=== PATIENT | female | born 1990 | race Caucasian/White ===

== ENCOUNTER 2016-10-14 16:21 | Emergency (ER) | payer BC, OTHER ==
[~2016-10-14] VITALS: Wt 54.4 kg
[~2016-10-14 16:21] MED LIST: IBUP-1542 PO
[2016-10-14] MEDS ORDERED: ERYTOPOI BOTH EYES (16:33)
--- NOTE | 2016-10-14 16:39 | ERD ---
ER Documentation Chief Complaint Date/Time DATE: 10/14/16 TIME: 16:36 Chief Complaint LEFT EYE PAIN AND REDNESS. NO DRAINAGE. HPI Patient is a 26-year-old female who presents to the ED with left eye pain and redness for 1 week. She states that she developed a bump on the top eyelid and it has gotten red and more painful. She denies drainage. Denies fever or chills. She denies blurry vision. Denies headache or dizziness. She states that she has had a stye in the past and feels that this is similar to this. Denies trauma. No other complaints. ROS All systems reviewed and are negative except as per history of present illness. Medications Home Meds Active Scripts Erythromycin* (Erythromycin* Ophthalmic) 1 Applic Oint, 1 APPLIC BOTH EYES QID for 7 Days, EA Prov:EDWARDO HUGHES PA-C 10/14/16 Ibuprofen* (Motrin*) 600 Mg Tab, 600 MG PO Q6, #20 TAB Prov:SEAN NGUYỄN PA-C 03/10/16 Allergies Allergies: Coded Allergies: ampicillin (Verified Allergy, Intermediate, HIVES, SOB, 03/10/16) PMhx/Soc History of Surgery: No Anesthesia Reaction: No Hx Neurological Disorder: No Hx Respiratory Disorders: No Hx Cardiac Disorders: No Hx Psychiatric Problems: No Hx Miscellaneous Medical Probl: No Hx Alcohol Use: Yes (weekends) Hx Substance Use: No Hx Tobacco Use: No Physical Exam Vitals Vital Signs Date Time Temp Pulse Resp B/P Pulse Ox O2 Delivery O2 Flow Rate FiO2 10/14/16 16:25 98.8 88 20 125/75 98 Physical Exam GENERAL: Well-developed, well-nourished female. Appears in no acute distress. HEAD: Normocephalic, atraumatic. EYES: Pupils are equally reactive bilaterally. EOMs grossly intact. No conjunctival erythema. Upper left eyelid has an erythematous bump. White opening seen on inner top eyelid. No drainage. No pain with movement of eye. ENT: Moist mucous membranes. No uvula deviation. No kissing tonsils. No exudates. NECK: Supple. No lymphadenopathy or thyromegaly. No meningismus. negative kernig. negative brudinski. LUNG: Clear to auscultation bilaterally. No rhonchi, wheezing, rales or coarse breath sounds. HEART: Regular rate and rhythm. No murmurs, rubs or gallops. SKIN: Normal color. Warm and dry. No rashes or lesions. Capillary refill < 2 seconds Procedures/MDM ER COURSE: I kept the patient and/or family informed of laboratory and diagnostic imaging results throughout the emergency room course. MEDICAL DECISION MAKING: This is a 26-year-old female who presents with eye pain and redness. Vital signs were reviewed. Patient is afebrile. Patient is not hypoxic. Patient has a hordeolum. Patient does not have pain with movement of eyes. No proptosis. Low suspicion for acute angle closure glaucoma, retinal detachment, arterial occlusion, hemorrhage, fracture, foreign body, ruptured globe, orbital cellulitis. DISCHARGE: At this time, patient is stable for discharge and outpatient management with no new complaints during the ER course. Patient was sent home with erythromycin ointment drops and to continue doing warm compresses on both eyes. Advised patient that she should change her makeup and any other products that she has used on her eye.. Patient will be discharged home with instructions to recheck for new or worsening symptoms such as fever, nausea, weakness, LOC and to follow up with primary care in the next 1-2 days. Patient was advised to return to the ER for any new or worsening symptoms. Plan was discussed and patient and/ or family understands and agrees. Home instructions were given. Departure Diagnosis: Primary Impression: Hordeolum externum (stye) Laterality: left Eyelid: upper Qualified Code: H00.014 - Hordeolum externum of left upper eyelid Condition: Stable Patient Instructions: When Your Child Has a Stye Additional Instructions: Call your primary care doctor TOMORROW for an appointment during the next 1-2 days.See the doctor sooner or return here if your condition worsens before your appointment time. Start doing warm compresses four times a day on each eye. You can use a cotton ball with warm water. EDWARDO HUGHES PA-C Oct 14, 2016 16:39
== END 2016-10-14 17:05 | disposition home or self-care (01) ==
LOC: E/R 16:21
DX: H00.014 Hordeolum externum left upper eyelid (principal)
CPT/HCPCS: 99283

== ENCOUNTER 2018-12-28 18:14 | Emergency (ER) | payer BC ==
[~2018-12-28] VITALS: Ht 160 cm; Wt 57.7 kg
[~2018-12-28 18:14] MED LIST changes: +ERYTOPOI BOTH EYES
[2018-12-28 18:22] VITALS: Ht 160 cm; Wt 57.7 kg
[2018-12-28] MEDS ORDERED: NAPR-985 PO (20:30)
--- NOTE | 2018-12-28 20:34 | ERD ---
ER Documentation Chief Complaint Chief Complaint Lower back pain and "pressure" X 2 wks HPI 28-year-old female with no reported past medical surgical history comes in with 2-week complaint of lower back pain. She states pain started approximately weeks ago after she woke up from sleep. Denies any history of injury or fall. Denies any red flag symptoms such as lower extremity weakness, paresthesias, bowel or urinary incontinence. On examination patient is able to walk around examination room without any issues. ROS All systems reviewed and are negative except as per history of present illness. Medications Home Meds Active Scripts Naproxen* (Naprosyn*) 500 Mg Tablet, 500 MG PO BID PRN for PAIN AND/OR INFLAMMATION, #30 TAB Prov:LC DOTY PA-C 12/28/18 Erythromycin* (Erythromycin* Ophthalmic) 1 Applic Oint, 1 APPLIC BOTH EYES QID for 7 Days, EA Prov:EDWARDO HUGHES PA-C 10/14/16 Ibuprofen* (Motrin*) 600 Mg Tab, 600 MG PO Q6, #20 TAB Prov:SEAN NGUYỄN PA-C 03/10/16 Allergies Allergies: Coded Allergies: ampicillin (Verified Allergy, Intermediate, HIVES, SOB, 03/10/16) Penicillins (Verified Allergy, Unknown, 12/28/18) PMhx/Soc Medical and Surgical Hx: pt denies Medical Hx, pt denies Surgical Hx History of Surgery: No Anesthesia Reaction: No Hx Neurological Disorder: No Hx Respiratory Disorders: No Hx Cardiac Disorders: No Hx Psychiatric Problems: No Hx Miscellaneous Medical Probl: No Hx Alcohol Use: Yes (weekends) Hx Substance Use: No Hx Tobacco Use: No Smoking Status: Never smoker FmHx Family History: No diabetes, No coronary disease, No other Physical Exam Vitals Vital Signs Date Temp Pulse Resp B/P (MAP) Pulse Ox O2 O2 Flow FiO2 Time Delivery Rate 12/28/18 98.8 85 18 123/78 98 Room Air 21:15 (93) 12/28/18 98.9 89 18 134/76 97 18:22 (95) Physical Exam Const: No acute distress Head: Atraumatic Eyes: Normal Conjunctiva ENT: Normal External Ears, Nose and Mouth. Neck: Full range of motion. No meningismus. Resp: Clear to auscultation bilaterally Cardio: Regular rate and rhythm, no murmurs Abd: Soft, non tender, non distended. Normal bowel sounds Skin: No petechiae or rashes Back: No midline or flank tenderness Ext: No cyanosis, or edema Neur: Awake and alert, grossly non focal Psych: Normal Mood and Affect Results 24 hrs Laboratory Tests Test 12/28/18 20:32 Bedside Urine pH (LAB) 7.0 Bedside Urine Protein (LAB) Negative Bedside Urine Glucose (UA) Negative Bedside Urine Ketones (LAB) Negative Bedside Urine Blood Trace-lysed Bedside Urine Nitrite (LAB) Negative Bedside Urine Leukocyte Esterase (L Negative Procedures/MDM 28-year-old female presents with lower back pain which is likely musculoskeletal in nature. He has an unremarkable exam and no reported history of fall or trauma. Low suspicion for acute cord compression or cauda equina at this time, given presentation and symptoms, including epidural abscess or hematoma. Patient has no history of malignancy, active or distant history. Patient has no unexplained weight loss. No recent fevers, rigors, malaise, or recent infection. No history of IVDU or skin-popping. Patient does not have any history concerning for saddle anesthesia/perianal sensory loss or complaining of decreased rectal tone. Patient does not have urinary retention or inability to control urine from overflow. Patient has no tenderness overlying spinous process. Patient has no focal weakness on examination. Given exam and history, low suspicion for cord compression, cauda equina, epidural abscess/hematoma. Distally neurovascularly intact. Query likely musculoskeletal component. Discussed pain control,and follow up with PMD. Cautious return precautions discussed w/ full understanding DISPOSITION PLAN: We discussed follow up with the patient's primary care doctor within 24 to 48 hours. Patient counseled regarding my diagnostic impression and care plan. Prior to discharge all questions answered. Pt agrees with treatment plan and understands strict return precautions. Precautionary instructions provided including instructions to return to the ER if not improving or for any worsening or changing symptoms or concerns. Disclaimer: Inadvertent spelling and grammatical errors are likely due to EHR/dictation software use and do not reflect on the overall quality of patient care. Also, please note that the electronic time recorded on this note does not necessarily reflect the actual time of the patient encounter. Departure Diagnosis: Primary Impression: Back pain Condition: Stable Patient Instructions: Back Pain (Acute Or Chronic) Referrals: COMMUNITY CLINICS YOU HAVE RECEIVED A MEDICAL SCREENING EXAM AND THE RESULTS INDICATE THAT YOU DO NOT HAVE A CONDITION THAT REQUIRES URGENT TREATMENT IN THE EMERGENCY DEPARTMENT. FURTHER EVALUATION AND TREATMENT OF YOUR CONDITION CAN WAIT UNTIL YOU ARE SEEN IN YOUR DOCTORS OFFICE WITHIN THE NEXT 1-2 DAYS. IT IS YOUR RESPONSIBILITY TO MAKE AN APPOINTMENT FOR FOLOW-UP CARE. IF YOU HAVE A PRIMARY DOCTOR --you should call your primary doctor and schedule an appointment IF YOU DO NOT HAVE A PRIMARY DOCTOR YOU CAN CALL OUR PHYSICIAN REFERRAL HOTLINE AT IF YOU CAN NOT AFFORD TO SEE A PHYSICIAN YOU CAN CHOSE FROM THE FOLLOWING [facility][1] [address] [employer] [facility]. [facility] [address] [facility] [address] [facility] [address] [facility]. [facility] [address] [facility]. [facility]. [address] Additional Instructions: Call your primary care doctor TOMORROW for an appointment during the next 2-3 days.See the doctor sooner or return here if your condition worsens before your appointment time. LC DOTY PA-C Dec 28, 2018 20:34
[2018-12-28 21:15] VITALS: BP 123/78; PULSE 85; RESP 18
== END 2018-12-28 21:15 | disposition home or self-care (01) ==
LOC: FTE 18:14
DX: M54.5 Low back pain (principal)
CPT/HCPCS: 81003; 99282